=== PATIENT | female | born 2000 | race Hispanic/Latino ===

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

== ENCOUNTER 2020-08-10 19:15 | Emergency (ER) | payer OTHER, SELFPAY ==
[2020-08-10] MEDS ORDERED: ACETAMINOPHEN 500 MG TAB ONE ×2 (20:07→20:26)
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
[2020-08-10 20:55] VITALS: BP 117/77; TEMP 97.9; O2SAT 99
== END 2020-08-10 20:50 | disposition home or self-care (01) ==
LOC: ER 19:15
DX: S16.1XXA Strain of muscle, fascia and tendon at neck level, initial encounter (principal); R51.9 Headache, unspecified; V49.40XA Driver injured in collision with unspecified motor vehicles in traffic accident, initial encounter
CPT/HCPCS: 70450; 72125; 99284